=== PATIENT | male | born 1950 | race Caucasian/White ===

== ENCOUNTER → 2019-07-08 | Outpatient (CLI) | payer MEDICARE ==
[2019-07-08 16:42] LABS: HCT 51.3 % (39.0-53.0); MCHC 33.1 g/dL (31.0-37.0); MCV 87.6 fL (80.0-100.0); Platelet Count 272 k/uL (150-450); RBC 5.86 m/uL (4.30-5.90); RDW 15.4 % (11.5-15.5)
[2019-07-08 16:46] LABS: ALT 19 U/L (21-72); AST 23 U/L (17-59); African American GFR (CKD) >90 (>60 ml/min/1.73 sqM); Albumin 4.8 g/dL (3.5-5.0); Alkaline Phosphatase 73 U/L (38-126); Anion Gap 13 mmol/L; Blood Urea Nitrogen 19 mg/dL (9-20); Calcium 9.7 mg/dL (8.4-10.2); Carbon Dioxide 24 mmol/L (22-30); Chloride 104 mmol/L (98-107); Glucose 102 mg/dL (74-99); Potassium 5.4 mmol/L (3.5-5.1); Sodium 141 mmol/L (137-145); Total Bilirubin 1.1 mg/dL (0.2-1.3); Total Protein 7.9 g/dL (6.3-8.2)
[2019-07-08 16:50] LABS: Partial Thromboplastin Time 24.3 sec (22.0-30.0); Prothrombin Time 10.3 sec (9.0-12.0)
[2019-07-08 16:59] LABS: Appearance,Urine Clear (Clear); Bilirubin,Urine Negative (Negative); Blood,Urine Negative (Negative); Color,Urine Yellow; Glucose,Urine (UA) Negative (Negative); Ketones,Urine Negative (Negative); Leukocyte Esterase,Urine Negative (Negative); Nitrite,Urine Negative (Negative); PH, Urine 5.5 (5.0-8.0); Protein,Urine Negative (Negative); Specific Gravity,Urine 1.026 (1.001-1.035); Urobilinogen,Urine <2.0 mg/dL (<2.0)
== END | disposition home or self-care (01) ==
LOC: LABPAT 15:27
PROVIDERS: ATTEND Orthopaedic Surgery
DX: Z01.812 Encounter for preprocedural laboratory examination (principal)
CPT/HCPCS: 80053; 81003; 85027; 85610; 85730; 87070; 93005

== ENCOUNTER 2019-07-20 08:01 | Inpatient (IN) | payer MEDICARE ==
[~2019-07-20 08:01] MED LIST: ACETAMINOPHEN TAB 500 MG TAB PO ONE; LIDOCAINE 1% 20 ML VIAL (10MG/ML) FOR IV START INTRADERMA PRN; MELOXICAM 7.5 MG TAB PO ONE; METOCLOPRAMIDE 5 MG/ML 2 ML VIAL IVP PRN; ROPIVACAINE 246.25 MG, EPINEPHrine 0.5 MG, KETOROLAC 30 MG, cloNIDine HCL/PF 80 MCG, WA... MISCELLANE ONE; TRANEXAMIC ACID 1,000 MG in SODIUM CHLORIDE 0.9% 100 ML IVPB ONE; ceFAZolin 3 GM in SODIUM CHLORIDE 0.9% 100 ML IVPB ONE
[2019-07-20] MEDS: LACTATED RINGERS 1,000 ML IV SCH (08:47)
[2019-07-20] MEDS: ONDANSETRON 4 MG/2 ML VIAL IVP ONE ×2 (08:52→12:20)
[2019-07-20] MEDS ORDERED: DEXAMETHASONE SOD PHOSPHATE 4 MG/ML 1 ML VIAL IV ONE (08:53)
[2019-07-20] MEDS ORDERED: HYDROcodone/APAP 5-325MG 1 EACH TAB PO PRN ×2 (09:04)
[2019-07-20] MEDS ORDERED: DIAZEPAM 5 MG TAB PO PRN (09:04)
[2019-07-20] MEDS ORDERED: HYDROmorphone 0.5 MG/0.5 ML SYRINGE IVP PRN ×3 (09:04)
[2019-07-20] MEDS ORDERED: NALOXONE 0.4 MG/ML 1 ML VIAL IV PRN (09:04)
[2019-07-20] MEDS ORDERED: hydrOXYzine PAMOATE 25 MG CAP PO PRN (09:04)
[2019-07-20] MEDS ORDERED: MAGNESIUM HYDROXIDE 2,400 MG/10 ML CUP PO PRN (09:04)
[2019-07-20] MEDS ORDERED: ONDANSETRON 4 MG/2 ML VIAL IVP PRN (09:04)
[2019-07-20] MEDS ORDERED: HYDROmorphone (PF) 1 MG/ML ONE (09:23)
[2019-07-20] MEDS ORDERED: PHENYLEPHRINE-0.9% NACL SYG 1 MG/10 ML SYRINGE ONE (09:23)
[2019-07-20] MEDS ORDERED: SUCCINYLCHOLINE CHLORIDE 100 MG/5 ML SYR IV ONE (09:23)
[2019-07-20] MEDS ORDERED: NEOSTIGMINE 1 MG/ML 10 ML VIAL ONE (09:23)
[2019-07-20] MEDS ORDERED: HEPARIN SODIUM,PORCINE 10,000 UNIT/ML 1 ML VIAL ONE (09:23)
[2019-07-20] MEDS ORDERED: MIDAZOLAM 2 MG/2 ML VIAL ONE (09:23)
[2019-07-20] MEDS ORDERED: TRANEXAMIC ACID 1,000 MG/10 ML VIAL ONE (09:23)
[2019-07-20] MEDS ORDERED: fentaNYL (PF) 50 MCG/ML 2 ML AMP ONE (09:23)
[2019-07-20] MEDS ORDERED: SODIUM CHLORIDE 0.9% 100 ML BAG ONE (09:23)
[2019-07-20] MEDS ORDERED: ROCURONIUM BROMIDE 10 MG/ML 10 ML VIAL IV ONE (09:23)
[2019-07-20] MEDS ORDERED: SODIUM CHLORIDE 0.9% IRRIG 1,000 ML BTL IRRIGATION ONE (09:23)
[2019-07-20] MEDS ORDERED: ePHEDrine SULFATE/0.9% NACL/PF 50 MG/5 ML SYRINGE IV ONE (09:23)
[2019-07-20] MEDS ORDERED: GLYCOPYRROLATE 0.2 MG/ML 2 ML VIAL ONE (09:23)
[2019-07-20] MEDS ORDERED: PROPOFOL 10 MG/ML 20 ML VIAL IV ONE (09:23)
[2019-07-20] MEDS ORDERED: ceFAZolin 3,000 MG in SODIUM CHLORIDE 0.9% IRRIGATIO 3,000 ML IRRIGATION ONE (09:30)
[2019-07-20] MEDS ORDERED: LACTATED RINGERS 1,000 ML IV ONE (10:33)
--- NOTE | 2019-07-20 11:30 | P.OP ---
Date of Procedure: 07/20/19 Preoperative Diagnosis: Severe osteoarthritis left hip Postoperative Diagnosis: Severe osteoarthritis left hip Procedure(s) Performed: Left total hip arthroplasty with a direct anterior approach Implants: Jones and nephew Polarstem size 6 standard Jones & Nephew R3, 3 hole acetabular shell, 54 mm Jones & Nephew reflection 6.5 mm cancellus screw, 20 mm 2 Jones & Nephew R3, XLPE 20 acetabular liner Jones & Nephew Oxinium femoral head 36 m, +0 All components were press-fit. The articulation is Oxinium on polyethylene. Anesthesia: GETA Surgeon: Shankar Laird Fur Cutting Machine Operator #1: Radha Willard Estimated Blood Loss (ml): 1,300 (547 mL returned with Cell Saver) Pathology: other (Femoral head) Condition: stable Disposition: PACU Indications for Procedure: After failure of conservative treatment we discussed the surgical and nonsurgical treatment options at length. Patient wishes to proceed with a total hip arthroplasty with a direct anterior approach. Complications specific to this procedure were discussed at length, including but not limited to infection, leg length discrepancy, dislocation, and nerve injury. Patient is aware of all these complications and informed consent was obtained Operative Findings: The operative findings are consistent with severe osteoarthritis of the left hip Description of Procedure: Patient was seen and evaluated in the preoperative area, consent was reviewed, and the surgical site was marked with a skin marker. Patient was then brought to the operating room and given prophylactic antibiotics intravenously. 1 g of Tranexamic acid was also given. A spinal anesthetic was attempted, but was unable to be obtained. A general anesthetic was then administered by the anesthesia department. The patient was then placed on the [place] table with the bony prominences well-padded. The hip area was then prepped and draped in usual sterile fashion. A universal timeout was then performed, which confirmed the patient's name, surgical site, ALLERGIES, and procedure being performed. Next the incision site was located at 1 cm distal and 1 cm lateral to the anterior superior iliac spine. The skin and subcutaneous tissues were sharply incised. Incision was carefully dissected down to the fascia overlying the tensor fascia tunde muscle. This fascia was then incised in line with the incision. Next, using blunt finger dissection, the tensor fascia tunde muscle was dissected off its investing fascia. The muscle was then carefully retracted laterally with a cobra retractor over the lateral neck of the femur. Next, the circumflex vessels were identified and cauterized using the AquaMantis device. The anterior hip capsule was then exposed. The capsule was then opened and an inverted T fashion. Cobra retractors were then placed intracapsularly. The proximal femur was then visualized. The femoral neck was then osteotomized appropriate level above the lesser trochanter. Small amount of traction was placed with the [place] table. A small wedge of bone was then removed from the remaining femoral head. Next, using a corkscrew femoral head was easily removed from the acetabulum. On gross visual inspection, the femoral head had complete loss of articular cartilage in multiple periarticular osteophytes. Attention was then turned to the acetabulum. the acetabulum was exposed and any remaining labrum was excised. Sequential reaming of the acetabulum was performed using fluoroscopic guidance. When the appropriate size was reached, a trial was then placed. The position and fit of the trial was checked with fluoroscopy. The trial was then removed. Then, using fluoroscopic guidance, the final implant was impacted at 20 of anteversion and 40 of abduction, and fully seated in the acetabulum. 2 screws were then placed in the acetabulum. Again fluoroscopy was used to check position of the screws. Next, the liner was then impacted, with a 20 elevated liner located in the anterior superior quadrant. Component locking was confirmed. Attention was then directed to the femur. With the aid of the [place] table, the femur was externally rotated to approximately 130, extended, and abducted under the opposite leg. A side hook was then placed under the proximal femur, and the side hook elevator was used to elevate the proximal femur. Retractors were then placed. A capsular release was performed, as well as a release of the conjoined tendon, which afforded excellent visualization of the proximal femur. Next, a box osteotome was used to lateralize the proximal femur. A handle rounder operator was then used to locate the femoral canal. Sequential broaching was then performed with appropriate size which afforded excellent fixation in the proximal femur. A trial was then placed with appropriate head and neck, and the hip was gently reduced with the aid of the [place] table. Fluoroscopy was then used to check position of the components, as well as to ensure equal leg lengths. The hip was then gently dislocated and the trials were then removed. Final implants were then impacted and the hip was again reduced. Final fluoroscopic x-rays confirmed that the components were in anatomic position, as well as equal leg lengths. The hip was also taken through range of motion, and found to be stable. The hip was then copiously irrigated with antibiotic solution with pulsatile lavage. The hip was then irrigated with Irrisept solution. The soft tissues were then injected with a ropivacaine solution, which consisted of 246.25 mg of ropivacaine, 0.5 mg of epinephrine, 30 mg of Toradol, 80 g of clonidine, and 48.45 mL of sterile water, for a total of 100 mL of fluid injected. A second dose of 1 g of Tranexamic acid was also given. the fascia was then closed with 2-0 strata fix suture. The subcutaneous tissue was closed with 3-0 Vicryl. The subcuticular tissue was closed with 3-0 strata fix suture. The skin was then closed with Dermabond glue and a sterile silver dressing. The patient was then transferred to the recovery room in stable condition. The cement tester assistant DENIS Salinas was required due to the complexity of surgery, and the need for skilled surgical rn for positioning, draping, exposure, retraction, and closure of the wound.
--- NOTE | 2019-07-20 11:43 | FL ---
EXAMINATION TYPE: FL guidance operating room, XR Hip Limited LT DATE OF EXAM: 07/20/2019 CLINICAL HISTORY: Left hip pain. TECHNIQUE: Fluoroscopy. Intraoperative limited views left hip. COMPARISON: None. FINDINGS: Fluoroscopic guidance was provided during hip replacement procedure performed by Dr. Hailee vasques. A total of 43 seconds of fluoroscopic time was utilized during the procedure and two spot intra operative fluoroscopic images are acquired. Images acquired show metallic hardware from total hip arthroplasty satisfactory in position on the fr ontal projection. IMPRESSION: As Above.
[2019-07-20] MEDS: HYDROmorphone 0.5 MG/0.5 ML SYRINGE IVP PRN ×4 (12:13→12:54)
--- NOTE | 2019-07-20 12:25 | XR ---
EXAMINATION TYPE: XR Hip Limited LT DATE OF EXAM: 07/20/2019 CLINICAL HISTORY: Left hip pain and osteoarthritis. TECHNIQUE: Single AP portable view of left hip is obtained immediately postoperatively. COMPARISON: None. FINDINGS: Metallic hardware from left hip arthroplasty is seen and appears satisfactory in alignment and position. There is evidence of recent surgery with soft tissue swelling noted laterally. IMPRESSION: Metallic hardware from left hip arthroplasty is satisfactory in position.
[2019-07-20] MEDS ORDERED: diphenhydrAMINE 50 MG/ML 1 ML VIAL IVP ONE (12:38)
[2019-07-20 14:12] VITALS: BMI 37.5
[2019-07-20] MEDS: KETOROLAC 30 MG/ML 1 ML VIAL IVP SCH ×4 (15:27→17:05)
[2019-07-20] MEDS: SODIUM CHLORIDE 0.9% 1,000 ML IV SCH (15:37)
[2019-07-20] MEDS ORDERED: LORATADINE 10 MG TAB PO PRN (16:09)
--- NOTE | 2019-07-20 17:07 | P.CONS ---
History of Present Illness - Reason for Consult Consult date: 07/20/19 Medical management Requesting physician: Shankar Laird - Chief Complaint Medical management - History of Present Illness 61-year-old male with PMH of hypertension, fibromyalgia and seasonal ALLERGIES presents to [facility] for elective surgery. He underwent left total hip arthroplasty with direct anterior approach on 07/20/2019. [facility] [place] physicians has been consulted for medical management of this patient. Patient had no immediate postoperative complications. Patient was seen and examined at 5 PM. Patient reports well-controlled pain at the left hip, none currently. He is wondering when he would be cleared to drive again. He denies any headaches, lower extremity edema, nausea or vomiting, fever or chills, cough, chest pain, shortness of breath or changes in appetite. He denies any dizziness, numbness/weakness/tingling of the extremities. Patient reports that he has not urinated since his surgery. He has not had a bowel movement since his surgery, not passing gas either. Review of Systems Pertinent positives and negatives as discussed in HPI, a complete review of systems was performed and all other systems are negative. Past Medical History Past Medical History: Fibromyalgia, Hypertension, Musculoskeletal Disorder, Osteoarthritis (OA) Additional Past Medical History / Comment(s): SEASONAL SINUS, BACK PAIN, LEFT HIP PAIN. History of Any Multi-Drug Resistant Organisms: None Reported Past Surgical History: Orthopedic Surgery Additional Past Surgical History / Comment(s): RT Rotator Cuff Repair x4. Lt Knee Meniscus Repair., Cataracts roosevelt.,. PAIN CLINIC PROCEDURES Past Anesthesia/Blood Transfusion Reactions: No Reported Reaction, Motion Sickness Past Psychological History: No Psychological Hx Reported Smoking Status: Never smoker Past Alcohol Use History: Occasional Past Drug Use History: None Reported - Past Family History Mother Family Medical History: No Reported History Father Family Medical History: Cancer Additional Family Medical History / Comment(s): PROSTATE CANCER Medications and Allergies Home Medications Medication Instructions Recorded Confirmed Type Guaifenesin/Pseudoephedrne HCl 1 tab PO DAILY PRN 07/04/15 07/20/19 History [Mucinex D ER Tablet] Loratadine [Claritin] 10 mg PO DAILY PRN 07/04/15 07/20/19 History Celecoxib [CeleBREX] 200 mg PO DAILY 07/09/19 07/20/19 History Fluticasone Nasal [place] [Flonase 1 spray EA NOSTRIL DAILY 07/09/19 07/20/19 History Nasal [place]] Benazepril HCl 40 mg PO DAILY 07/20/19 07/20/19 History Milnacipran HCl [Savella] 100 mg PO DAILY 07/20/19 07/20/19 History amLODIPine BESYLATE 10 mg PO DAILY 07/20/19 07/20/19 History Allergies Allergy/AdvReac Type Severity Reaction Status Date / Time No Known Allergies Allergy Verified 07/20/19 08:47 Physical Exam Vitals: Vital Signs Temp Pulse Resp BP Pulse Ox 07/20/19 14:43 81 92/58 07/20/19 14:27 87 104/66 07/20/19 14:13 85 92/58 07/20/19 13:57 82 91/57 07/20/19 13:27 79 94/58 07/20/19 13:12 97.7 F 81 16 99/63 99 07/20/19 12:46 90 16 113/57 93 L 07/20/19 12:31 84 16 124/56 100 07/20/19 12:15 77 16 140/65 100 07/20/19 12:00 89 20 134/61 97 07/20/19 11:53 97.0 F L 89 24 135/60 98 07/20/19 08:38 97.5 F L 84 16 131/71 94 L Intake and Output 07/20/19 07/20/19 07/20/19 06:59 14:59 22:59 Intake Total 1901 Output Total 1300 Balance 601 Intake: IV 1901 Output: Estimated Blood Loss 1300 General: [non toxic], [no distress], [appears at stated age] Derm: [warm], [dry] Head: [atraumatic], [normocephalic], [symmetric] Eyes: [EOMI], [no lid lag], [anicteric sclera] Mouth: [no lip lesion], [mucus membranes moist] Cardiovascular: [S1S2 reg], [no murmur], [positive DP pulse bilateral], Lungs: [CTA bilateral], [no rhonchi, no rales] , [no accessory muscle use] Abdominal: [soft], [ nontender to palpation], [no guarding], [no appreciable o rganomegaly] Ext: [no gross muscle atrophy], [no edema], [no contractures], [left hip dressing clean dry and intact, no hematoma] Neuro: [ CN II-XI grossly intact], [no focal neuro deficits] Psych: [Alert], [oriented], [appropriate affect] Results CBC & Chem 7: 07/20/19 08:45 Assessment and Plan Assessment: Assessment and Plan Hypertension Fibromyalgia Seasonal ALLERGIES POD 0 left total hip arthroplasty direct anterior approach BP 92/58. Plans: Continue amlodipine, lisinopril. Monitor vitals, adjust medications as necessary. Plans: Continue Savella. Plans: Continue Claritin. Plans: Management as per orthopedic surgery. DVT prophylaxis: [SCD boots] Discussed with: [Patient and ] Anticipated discharge: [1-2 days] Anticipated discharge place: [Home] A total of [30] minutes was spent on the care of this complex patient more than 50% of the time was spent in counseling and care coordination. Patient names his Mabel decision maker in the case that he can't make decisions for himself. Patient reiterates wanting to remain full code at this time. His PCP is Dr. Ho.
[2019-07-20] MEDS ORDERED: SENNOSIDES-DOCUSATE SODIUM 1 EACH TAB PO SCH (21:00)
[2019-07-20] MEDS: ASPIRIN 325 MG TAB PO SCH (21:27)
[2019-07-21] MEDS: KETOROLAC 30 MG/ML 1 ML VIAL IVP SCH ×3 (01:33→12:49)
[2019-07-21] MEDS: SODIUM CHLORIDE 0.9% 1,000 ML IV SCH ×2 (01:33→05:57)
[2019-07-21 02:15] VITALS: TEMP 98.8
[2019-07-21] MEDS: LACTATED RINGERS 1,000 ML IV SCH (04:14)
[2019-07-21 08:23] VITALS: BP 108/67; PULSE 83; RESP 16
[2019-07-21] MEDS ORDERED: LISINOPRIL 20 MG TAB PO SCH (09:00)
[2019-07-21] MEDS ORDERED: MILNACIPRAN HCL 100 MG PO SCH (09:00)
[2019-07-21] MEDS ORDERED: MELOXICAM 7.5 MG TAB PO SCH (09:00)
[2019-07-21] MEDS ORDERED: amLODIPine 10 MG TAB PO SCH (09:00)
--- NOTE | 2019-07-21 09:38 | P.DS ---
Providers Date of admission: 07/20/19 08:01 Expected date of discharge: 07/21/19 Attending physician: Shankar Laird Consults: 07/20/19 09:04 Consult Physician Routine Consulting Provider: Quynh Huang Consult Reason/Comments: medical management Do you want consulting provider notified?: Yes Primary care physician: Sergo Ho - Discharge Diagnosis(es) (1) Osteoarthritis of left hip Current Visit: Yes Status: Acute (2) Status post total hip replacement, left Current Visit: Yes Status: Acute Hospital Course: This is a 69-year-old male with known history of degenerative arthritis of the left hip. The patient presents for evaluation. After discussion and consideration patient elects to proceed with total hip arthroplasty. The patient is seen preoperatively by Dr. Laird and medically cleared for surgery by their primary care physician. Patient is admitted to [facility] on 07/20/2019 for total hip arthroplasty. The procedures performed without complication or sequelae. The patient is doing well postoperatively. Labs and vital signs are stable on day of discharge. On day of discharge patient's hip incision is healing well. There is minimal erythema. There is no drainage noted at this time. There is minimal soft tissue swelling to the hip and thigh. Patient has full foot and ankle motion without difficulty or pain. Calf is soft and nontender to palpation. Neurovascular status to the left lower extremity is intact. Patient is discharged home in good condition. Opioid start talking form is reviewed and signed at patient bedside. Please see med rec for accurate list of home medications. Plan - Discharge Summary Discharge Rx Participant: No New Discharge Prescriptions: New Aspirin 325 mg PO BID #60 tab HYDROcodone/APAP 5-325MG [May 5-325] 1 - 2 tab PO Q6HR PRN #56 tab PRN Reason: Pain Sennosides [Senokot] 1 tab PO BID #60 tablet No Action Loratadine [Claritin] 10 mg PO DAILY PRN PRN Reason: Allergy Symptoms Guaifenesin/Pseudoephedrne HCl [Mucinex D ER Tablet] 1 tab PO DAILY PRN PRN Reason: Sinus Symptoms Fluticasone Nasal [place] [Flonase Nasal [place]] 1 spray EA NOSTRIL DAILY Celecoxib [CeleBREX] 200 mg PO DAILY amLODIPine BESYLATE 10 mg PO DAILY Milnacipran HCl [Savella] 100 mg PO DAILY Benazepril HCl 40 mg PO DAILY Discharge Medication List Guaifenesin/Pseudoephedrne HCl [Mucinex D ER Tablet] 1 tab PO DAILY PRN 07/04/15 [History] Loratadine [Claritin] 10 mg PO DAILY PRN 07/04/15 [History] Celecoxib [CeleBREX] 200 mg PO DAILY 07/09/19 [History] Fluticasone Nasal [place] [Flonase Nasal [place]] 1 spray EA NOSTRIL DAILY 07/09/19 [History] Benazepril HCl 40 mg PO DAILY 07/20/19 [History] Milnacipran HCl [Savella] 100 mg PO DAILY 07/20/19 [History] amLODIPine BESYLATE 10 mg PO DAILY 07/20/19 [History] Aspirin 325 mg PO BID #60 tab 07/21/19 [Rx] HYDROcodone/APAP 5-325MG [May 5-325] 1 - 2 tab PO Q6HR PRN #56 tab 07/21/19 [Rx] Sennosides [Senokot] 1 tab PO BID #60 tablet 07/21/19 [Rx] Follow up Appointment(s)/Referral(s): Shankar Laird DO [Doctor of Osteopathic Medicine] - 2 Weeks Activity/Diet/Wound Care/Special Instructions: Weightbearing as tolerated with walker. Leave dressing intact. Dressing may be removed by home care nurse or by patient in 10 days. May shower with dressing on. Recommend use of compression stockings daily for at least 2 weeks during the day to help prevent swelling and blood clots. May remove at night before sleeping. Please follow-up with [facility] in 2 weeks and call with any questions or concerns, . Discharge Disposition: HOME WITH HOME HEALTH SERVICES
[2019-07-21] MEDS: ASPIRIN 325 MG TAB PO SCH (09:55)
[2019-07-21 10:17] LABS: Basophils # (A) 0.1 k/uL (0-0.2); Basophils % (A) 0 %; Eosinophils % (A) 0 %; HCT 38.6 % (39.0-53.0); Lymphocytes # (A) 1.2 k/uL (1.0-4.8); Lymphocytes % (A) 8 %; MCH 28.6 pg (25.0-35.0); MCHC 33.4 g/dL (31.0-37.0); MCV 85.5 fL (80.0-100.0); Mean Platelet Volume 7.7; Monocytes # (A) 1.4 k/uL (0-1.0); Monocytes % (A) 8 %; Neutrophils # (A) 13.6 k/uL (1.3-7.7); Neutrophils % (A) 83 %; Platelet Count 204 k/uL (150-450); RBC 4.51 m/uL (4.30-5.90); WBC 16.4 k/uL (3.8-10.6)
[2019-07-21 10:22] LABS: HGB 12.9 gm/dL (13.0-17.5)
== END 2019-07-21 13:20 | disposition home health service (06) | DRG 470 ==
LOC: 2ORMAIN 08:01 → 4SSUR 12:30
PROVIDERS: ADMIT Orthopaedic Surgery; ATTEND Orthopaedic Surgery
PROC: 0SRB06A Replacement of Left Hip Joint with Oxidized Zirconium on Polyethylene Synthetic Substitute, Uncemented, Open Approach (ICD-10-PCS; principal; 2019-07-20 09:10)
DX: M16.12 Unilateral primary osteoarthritis, left hip (principal); I10 Essential (primary) hypertension; M79.7 Fibromyalgia; E78.5 Hyperlipidemia, unspecified; M54.5 Low back pain; J30.2 Other seasonal allergic rhinitis; E66.9 Obesity, unspecified; Z68.36 Body mass index [BMI] 36.0-36.9, adult; Z79.1 Long term (current) use of non-steroidal anti-inflammatories (NSAID); Z80.42 Family history of malignant neoplasm of prostate; Z98.42 Cataract extraction status, left eye; Z98.41 Cataract extraction status, right eye
CPT/HCPCS: 73501; 84132; 85025; 86850; 86891; 86900; 86901; 88300

== ENCOUNTER → 2019-10-13 | Outpatient (CLI) | payer MEDICARE ==
[2019-10-13 13:04] LABS: Basophils # (A) 0.1 k/uL (0-0.2); Basophils % (A) 1 %; Eosinophils # (A) 0.2 k/uL (0-0.7); Eosinophils % (A) 2 %; HCT 54.3 % (39.0-53.0); HGB 17.1 gm/dL (13.0-17.5); Lymphocytes % (A) 22 %; MCHC 31.6 g/dL (31.0-37.0); MCV 85.6 fL (80.0-100.0); Mean Platelet Volume 7.2; Monocytes # (A) 0.6 k/uL (0-1.0); Monocytes % (A) 7 %; Neutrophils # (A) 5.9 k/uL (1.3-7.7); Neutrophils % (A) 67 %; Platelet Count 281 k/uL (150-450); RBC 6.34 m/uL (4.30-5.90); RDW 13.7 % (11.5-15.5); WBC 8.9 k/uL (3.8-10.6)
[2019-10-13 15:13] LABS: Erythrocyte Sedimentation Rate 2 mm/hr (0-15)
== END | disposition home or self-care (01) ==
LOC: LABWHC1 11:54
PROVIDERS: ATTEND Orthopaedic Surgery
DX: M25.552 Pain in left hip (principal); Z96.642 Presence of left artificial hip joint; M25.551 Pain in right hip; M16.11 Unilateral primary osteoarthritis, right hip; Z47.1 Aftercare following joint replacement surgery; Z68.37 Body mass index [BMI] 37.0-37.9, adult
CPT/HCPCS: 36415; 85025; 85652; 86140

== ENCOUNTER → 2019-10-19 | Outpatient (CLI) | payer MEDICARE ==
--- NOTE | 2019-10-19 13:59 | CT ---
EXAMINATION TYPE: CT hip LT wo con DATE OF EXAM: 10/19/2019 COMPARISON: Left hip x-ray July 20, 2019. HISTORY: Left hip pain post joint replacement surgery 3 months ago. Elevated BMI. CT DLP: 1515.5 mGycm Automated exposure control for dose reduction was used. FINDINGS: [place] osseous structures are somewhat demineralized. Metallic hardware from left hip arthroplasty re matti stable and satisfactory in position. No new suspicious surrounding lucency to suggest loosening or infection. Mild/moderate acetabular spurring is redemonstrated. No joint effusion. Muscle bulk le ft thigh is felt within normal limits. No suspicious groin hernia or adenopathy. IMPRESSION: As above.
== END | disposition home or self-care (01) ==
LOC: RADCTMAIN 13:07
PROVIDERS: ATTEND Orthopaedic Surgery
DX: M16.11 Unilateral primary osteoarthritis, right hip (principal); Z96.642 Presence of left artificial hip joint; Z47.1 Aftercare following joint replacement surgery

== ENCOUNTER 2021-05-08 09:17 | Day surgery (SDC) | payer MEDICARE ==
[2021-05-03 14:29] VITALS: BMI 37.1
[2021-05-08 09:36] VITALS: RESP 16; TEMP 96.7
[2021-05-08] MEDS ORDERED: LACTATED RINGERS 1,000 ML IV ONE (09:39)
[2021-05-08] MEDS ORDERED: LIDOCAINE 1% (10MG/ML) FOR IV START INTRADERMA ONE (09:40)
[2021-05-08] MEDS ORDERED: PROPOFOL 10 MG/ML 20 ML VIAL IV ONE (09:47)
--- NOTE | 2021-05-08 10:47 | P.PCN ---
Date of Procedure: 05/08/21 Description of Procedure: BRIEF HISTORY: Patient is a 70-year-old male presenting for outpatient colonoscopy for screening for malignant neoplasm of the colon. Last colonoscopy 10 years ago and normal as per patient recollection. No change in bowel habits or blood per rectum. PROCEDURE PERFORMED: Colonoscopy with polypectomy, Endo Clip placement and tattoo. PREOPERATIVE DIAGNOSIS: Screening for malignant neoplasm of the colon, less colonoscopy 10 years ago. ESTIMATED BLOOD LOSS: Minimal. IV sedation per Anesthesia. PROCEDURE: After informed consent was obtained, the patient, was brought into the endoscopy unit. IV sedation was administered by Anesthesia under continuous monitoring. Digital rectal examination was normal. Initially the Olympus CF-190 flexible video colonoscope was then inserted in the rectum, gradually advanced into the cecum without any difficulty. Careful examination was performed as the scope was gradually being withdrawn. Ileocecal valve and the appendiceal orifice were visualized and appeared normal. Prep was excellent. Mucosa of the cecum, ascending colon, transverse colon, descending colon, sigmoid colon, and rectum appeared normal. A flat 4 mm ascending colon polyp was removed with cold snare polypectomy. 3 sessile polyps removed with hot snare polypectomy measuring 16 mm in size from the sigmoid colon 2 and rectum 1. Sessile 18 mm proximal descending colon polyp removed with hot snare polypectomy with Endo Clip place ment for hemostasis and 3 mL of ink injected to dawna the location for future reference. A few scattered sigmoid diverticula noted. Retroflexion was performed in the rectum and no lesions were seen. The patient tolerated the procedure well. IMPRESSION: Large sessile proximal descending colon polyp removed with hot snare polypectomy with Endo Clip placement for hemostasis and tattoo. 3 sessile polyps removed with hot snare polypectomy from the sigmoid colon 2 and rectum. Sessile ascending colon polyp removed with cold snare polypectomy. Mild sigmoid diverticulosis. RECOMMENDATIONS: Findings of this examination were discussed with the patient and his family. Okay to resume diet. Okay to resume medications. Await pathology from polypectomies. Recommend repeat colonoscopy in 3 years for colon polyps pending pathology, if any dysplasia or other abnormalities noted patient may require colonoscopy sooner or referral for further intervention.
[2021-05-08 11:03] VITALS: BP 117/67; PULSE 71
== END 2021-05-08 11:24 | disposition home or self-care (01) ==
LOC: ORWHC2ENDO 09:17
PROVIDERS: ATTEND Internal Medicine
DX: Z12.11 Encounter for screening for malignant neoplasm of colon (principal); K57.90 Diverticulosis of intestine, part unspecified, without perforation or abscess without bleeding; D12.2 Benign neoplasm of ascending colon; D12.8 Benign neoplasm of rectum; D12.4 Benign neoplasm of descending colon; K63.5 Polyp of colon; I10 Essential (primary) hypertension; E78.5 Hyperlipidemia, unspecified; M19.90 Unspecified osteoarthritis, unspecified site; Z79.899 Other long term (current) drug therapy
CPT/HCPCS: 88305; 45382; 45385; 45381; J2704

== ENCOUNTER → 2021-10-02 | Outpatient (CLI) | payer MEDICARE ==
--- NOTE | 2021-10-02 16:43 | XR ---
EXAMINATION TYPE: XR lumbar spine 2 or 3V DATE OF EXAM: 10/02/2021 COMPARISON: None HISTORY: Low back pain TECHNIQUE: 3 view lumbar spine FINDINGS: There are 5 lumbar-type vertebral bodies. The pedicles are intact. Disc space narrowing is present throughout the lumbar spine. Lumbar spondylosis is present. Scoliosis with convexity to the l eft is present. IMPRESSION: 1. Lumbar scoliosis with diffuse degenerative disc changes
== END | disposition home or self-care (01) ==
LOC: RADXRMAIN 08:33
PROVIDERS: ATTEND Internal Medicine
DX: M51.36 Other intervertebral disc degeneration, lumbar region (principal); M41.86 Other forms of scoliosis, lumbar region; M47.816 Spondylosis without myelopathy or radiculopathy, lumbar region
CPT/HCPCS: 72100

== ENCOUNTER → 2022-09-04 | Outpatient (CLI) | payer MEDICARE ==
[2022-09-04 14:32] LABS: Basophils # (A) 0.08 X 10*3/uL (0.00-0.10); Basophils % (A) 0.7 %; Eosinophils # (A) 0.03 X 10*3/uL (0.04-0.35); Eosinophils % (A) 0.3 %; HCT 48.8 % (39.6-50.0); HGB 16.3 g/dL (13.0-17.0); Lymphocytes # (A) 2.24 X 10*3/uL (0.90-5.00); Lymphocytes % (A) 20.6 %; MCH 30.4 pg (27.0-32.0); MCHC 33.4 g/dL (32.0-37.0); Mean Platelet Volume 9.4 fL (9.5-12.2); Monocytes # (A) 0.78 X 10*3/uL (0.20-1.00); Monocytes % (A) 7.2 %; NRBC Per 100 WBC 0 /100 WBCS (0.0-0.0); Neutrophils # (A) 7.62 X 10*3/uL (1.80-7.70); Neutrophils % (A) 70.2 %; Platelet Count 240 X 10*3/uL (140-440); RBC 5.36 X 10*6/uL (4.40-5.60); RDW 13.7 % (11.5-14.5); WBC 10.86 X 10*3/uL (4.50-10.00)
[2022-09-04 14:58] LABS: ALT 40 U/L (10-49); AST 23 U/L (14-35); Albumin 4.5 g/dL (3.8-4.9); Albumin/Globulin Ratio 2.07 (1.60-3.17); Alkaline Phosphatase 76 U/L (41-126); BUN/Creat Ratio 18.27 Ratio (12.00-20.00); Blood Urea Nitrogen 16.9 mg/dL (9.0-27.0); Calcium 9.5 mg/dL (8.7-10.3); Carbon Dioxide 28.8 mmol/L (20.0-27.5); Chloride 105 mmol/L (96-109); Chol/HDL Ratio 2.83 Ratio; Globulin 2.2 g/dL (1.6-3.3); Glucose 102 mg/dL (70-110); LDL Cholesterol,Calculated 83.6 mg/dL (0.0-131.0); Non-African American GFR(CKD) 82.8 (60.0-200.0); Potassium 5.3 mmol/L (3.5-5.5); Sodium 142 mmol/L (135-145); Total Protein 6.6 g/dL (6.2-8.2)
== END | disposition home or self-care (01) ==
LOC: LABWHC1 10:01
PROVIDERS: ATTEND Internal Medicine
DX: Z12.5 Encounter for screening for malignant neoplasm of prostate (principal); I10 Essential (primary) hypertension
CPT/HCPCS: 80061; 80053; 84443; 85025; 36415; G0103

== ENCOUNTER → 2025-04-19 | Outpatient (CLI) | payer MEDICARE ==
--- NOTE | 2025-04-19 08:38 | US ---
EXAMINATION TYPE: US liver DATE OF EXAM: 04/19/2025 COMPARISON: CT 2011 CLINICAL INDICATION: Male, 74 years old with history of E80.6 HYPERBILLRUBINEMIA; Hyperbilirubinemia. Hx kidney stone. TECHNIQUE: Grayscale and color Doppler imaging of the right upper quadrant. FINDINGS: EXAM MEASUREMENTS: Liver Length: 13.7 cm Gallbladder Wall: 0.27 cm CBD: Obscured Right Kidney: 10.1 x 5.5 x 5.7 cm MALT HOUSE OPERATOR NOTES: *Exam is very limited due to gas. Pancreas: *Obscured Liver: Left lobe not well seen. *Increased echogenicity. Appears coarse. Most images taken intercost ally. Gallbladder: Not well seen in supine position. *Very limited evaluation. Great amount of gas seen adj acent to the gallbladder. Evidence for sonographic Diaz's sign: No CBD: Obscured Right Kidney: *Indistinct suspected column of [place], 3.3 x 2.3 x 2.9 cm. IMPRESSION: 1. No evidence for acute process. 2. Hepatic steatosis. [facility], , 04/19/2025 8:36 AM
== END | disposition home or self-care (01) ==
LOC: RADUSWWP 06:49
PROVIDERS: ATTEND Internal Medicine
DX: E80.6 Other disorders of bilirubin metabolism (principal); K76.0 Fatty (change of) liver, not elsewhere classified; Z87.442 Personal history of urinary calculi
CPT/HCPCS: 76705